=== PATIENT | female | born 1935 | race Two or more races ===

== ENCOUNTER 2025-04-23 03:10 | Inpatient (IN) | payer MEDICARE ==
[~2025-04-23] VITALS: Ht 152.4 cm; Wt 65.4 kg
[2025-04-23] MEDS ORDERED: SPIR25TA6 PO (03:34)
[2025-04-23] MEDS ORDERED: ERGO500040 PO (03:34)
[2025-04-23] MEDS ORDERED: POTA10CA43 PO (03:34)
[2025-04-23] MEDS ORDERED: ERYT3.5O24 LEFTEYE (03:34)
[2025-04-23] MEDS ORDERED: URSO250T3 PO (03:34)
[2025-04-23] MEDS ORDERED: ALBU1.25 NEB (03:34)
[2025-04-23] MEDS ORDERED: GABA300T25 PO (03:34)
[2025-04-23] MEDS ORDERED: PIME30CR6 TP (03:34)
[2025-04-23] MEDS ORDERED: DIGO125T5 PO (03:34)
[2025-04-23] MEDS ORDERED: PITA1TAB PO (03:34)
[2025-04-23] MEDS ORDERED: PANT20TA2 PO (03:34)
[2025-04-23] MEDS ORDERED: ALBU8.5H8 INH (03:34)
[2025-04-23] MEDS ORDERED: APIX2.5T PO (03:34)
[2025-04-23] MEDS ORDERED: DILT240C99 PO (03:34)
[2025-04-23] MEDS ORDERED: TORS20TA3 PO (03:34)
[2025-04-23] MEDS ORDERED: SERT50TA PO (03:34)
[2025-04-23] MEDS ORDERED: UBID100T7 PO (03:34)
[2025-04-23] MEDS ORDERED: LEVO100T10 PO (03:34)
[2025-04-23] MEDS ORDERED: VANCOMYCIN IV 200 ML ONE (03:41)
[2025-04-23] MEDS ORDERED: MEROPENEM 1GM/NS 100ML IVPB **ER PYXIS ONLY IV ONE (03:41)
[2025-04-23 03:42] LABS: WHITE BLOOD COUNT (AUTO) 13.9 K/uL (3.8-11.8)
[2025-04-23 03:43] LABS: CREATININE 2.1 mg/dL (0.6-1.3); SODIUM SERUM 126 mmol/L (136-145); UREA NITROGEN, BLOOD 46 mg/dL (7-18)
[2025-04-23 03:44] LABS: RED BLOOD CELL COUNT(AUTO) 3.65 MIL/uL (3.63-4.92); RED CELL DISTRIBUTION WIDTH 13.7 % (12.3-17.7)
[2025-04-23 03:46] LABS: PLATELET COUNT (AUTO) 11 K/uL (179-408)
[2025-04-23 03:48] LABS: ASPARTATE AMINOTRANSFERASE 27 U/L (15-37); TOTAL PROTEIN, SERUM 7.3 g/dL (6.4-8.2)
[2025-04-23] MEDS: MEROPENEM 1,000 MG in IV NORMAL SALINE 100 ML IV ONE (03:59)
[2025-04-23] MEDS: IV NORMAL SALINE 1000 ML BAG IV ONE (03:59)
[2025-04-23 04:18] LABS: CREATININE 2.1 mg/dL (0.6-1.3); SODIUM SERUM 125 mmol/L (136-145); UREA NITROGEN, BLOOD 46 mg/dL (7-18)
[2025-04-23 04:29] LABS: ASPARTATE AMINOTRANSFERASE 25 U/L (15-37); TOTAL PROTEIN, SERUM 7.5 g/dL (6.4-8.2)
[2025-04-23 04:36] LABS: *BILIRUBIN,URIN NEGATIVE (NEGATIVE); *BLOOD, URINE 3+ (NEGATIVE); *CLARITY,URINE CLEAR (CLEAR); *COLOR,URINE YELLOW (YELLOW); *KETONES,URINE NEGATIVE (NEGATIVE); *PROTEIN,URINE 2+ (NEGATIVE); *UROBILINOGEN,URINE 4.0 E.U./dl (NORMAL); LEUKOCYTE ESTERASE ,URINE 3+ (NEGATIVE); NITRITE, URINE NEGATIVE (NEGATIVE); UGLUCOSE NEGATIVE (NEGATIVE)
[2025-04-23] MEDS: VANCOMYCIN IV 1,000 MG in IV DEXTROSE 5% 250 ML IV ONE (04:47)
[2025-04-23 04:56] LABS: SQUAMOUS EPITHELIAL CELL,UR FEW /HPF (NONE SEEN)
[2025-04-23 05:01] LABS: LYMPHOCYTES % (MANUAL) 3 % (20-40); MONOCYTES % (MANUAL) 5 % (2-10); NEUTROPHILS % (MANUAL) 92 % (42-75); PLATELET ESTIMATE MARKED DECREASED
[2025-04-23] MEDS ORDERED: DIGOXIN 125 MCG TABLET PO SCH (05:30)
[2025-04-23] MEDS ORDERED: MAGNESIUM HYDROXIDE 30 ML LIQUID UDC PO PRN (05:30)
[2025-04-23] MEDS ORDERED: REMEDY ESSENTIAL ZINC PASTE 113 GM TP PRN (05:30)
[2025-04-23] MEDS ORDERED: ONDANSETRON 4 MG/2 ML VIAL IV PRN (05:30)
[2025-04-23 06:03] LABS: RED BLOOD CELL COUNT(AUTO) 3.26 MIL/uL (3.63-4.92); RED CELL DISTRIBUTION WIDTH 14.1 % (12.3-17.7); WHITE BLOOD COUNT (AUTO) 11.9 K/uL (3.8-11.8)
[2025-04-23 06:16] LABS: CREATININE 1.8 mg/dL (0.6-1.3); SODIUM SERUM 129 mmol/L (136-145); UREA NITROGEN, BLOOD 44 mg/dL (7-18)
[2025-04-23 06:24] LABS: PLATELET COUNT (AUTO) 5 K/uL (179-408)
[2025-04-23] MEDS ORDERED: CEFEPIME HCL 1 G VIAL ONE (07:31)
[2025-04-23] MEDS: CEFEPIME HCL 1 G in IV DEXTROSE 5% 50 ML IV SCH (07:36)
[2025-04-23] MEDS ORDERED: SERTRALINE HCL 50 MG TABLET ONE (09:00)
[2025-04-23] MEDS ORDERED: PITAVASTATIN CALCIUM PO SCH (09:00)
[2025-04-23] MEDS ORDERED: DILTIAZEM HCL CD 120 MG CAP.SR.24H PO ONE (09:00)
[2025-04-23] MEDS ORDERED: URSODIOL 300 MG PO SCH (09:00)
[2025-04-23] MEDS ORDERED: LEVOTHYROXINE SODIUM 100 MCG TABLET ONE (09:00)
[2025-04-23] MEDS: APIXABAN 2.5 MG TABLET PO SCH (09:00)
[2025-04-23] MEDS: DILTIAZEM HCL CD 240 MG CAP.SR.24H PO SCH (09:03)
[2025-04-23] MEDS: LEVOTHYROXINE SODIUM 100 MCG TABLET PO SCH (09:03)
[2025-04-23] MEDS: SERTRALINE HCL 50 MG TABLET PO SCH (09:03)
[2025-04-23 10:00] VITALS: BP 121/87; TEMP 98.5; O2SAT 93
[2025-04-23] MEDS: IV NS 1000 ML 1,000 ML IV PRN (10:56)
[2025-04-23 12:00] VITALS: BP 144/65; TEMP 102.8; O2SAT 95
[2025-04-23] MEDS: ACETAMINOPHEN 325 MG TABLET PO PRN (12:34)
[2025-04-23] MEDS ORDERED: GABA300C PO (13:19)
[2025-04-23] MEDS ORDERED: APIXABAN 2.5 MG TABLET PO SCH ×2 (13:23→17:00)
[2025-04-23] MEDS ORDERED: ACET-2030 PO (13:23)
[2025-04-23] MEDS ORDERED: URSO300C12 PO (13:24)
[2025-04-23] MEDS ORDERED: MIRA25TA PO (13:25)
[2025-04-23 16:11] LABS: HIV-1/2 ANTIBODY NON REACTIVE (NONREACTIVE)
[2025-04-23 16:25] VITALS: O2SAT 95
[2025-04-23 16:47] VITALS: BP 105/46; TEMP 97.6; O2SAT 92
[2025-04-23] MEDS: URSODIOL 300 MG CAPSULE PO SCH (17:38)
[2025-04-23] MEDS: GABAPENTIN 300 MG CAPSULE PO SCH (17:38)
[2025-04-23] MEDS ORDERED: Medication Not On Formulary EA (Gabapentin (Gralise) 1 TAB) PO SCH (18:00)
[2025-04-23 19:23] VITALS: BP 138/66; TEMP 99; O2SAT 90; O2SAT 95
[2025-04-23] MEDS: IPRATROPIUM BROMIDE 0.5 MG/2.5 ML NEBU NEB SCH (21:58)
[2025-04-23] MEDS: LEVALBUTEROL HCL NEB 0.63 MG/3 ML NEBU NEB SCH (21:58)
[2025-04-23 21:59] VITALS: O2SAT 95
[2025-04-24] VITALS (17 sets, daily range): BP systolic 91–130; BP diastolic 44–84; TEMP 97.6–99.9; O2SAT 90–99
[2025-04-24] MEDS ORDERED: CEFEPIME HCL 1 G in IV DEXTROSE 5% 50 ML IV SCH (06:00)
[2025-04-24 06:22] LABS: RED BLOOD CELL COUNT(AUTO) 2.99 MIL/uL (3.63-4.92); RED CELL DISTRIBUTION WIDTH 14.0 % (12.3-17.7); WHITE BLOOD COUNT (AUTO) 7.2 K/uL (3.8-11.8)
[2025-04-24 06:29] LABS: PLATELET COUNT (AUTO) 2 K/uL (179-408)
[2025-04-24 06:40] LABS: ASPARTATE AMINOTRANSFERASE 26 U/L (15-37); CREATININE 1.5 mg/dL (0.6-1.3); SODIUM SERUM 139 mmol/L (136-145); TOTAL PROTEIN, SERUM 6.7 g/dL (6.4-8.2); UREA NITROGEN, BLOOD 39 mg/dL (7-18)
[2025-04-24] MEDS: DILTIAZEM HCL CD 240 MG CAP.SR.24H PO SCH (08:53)
[2025-04-24 08:57] LABS: EOSINOPHILS % (MANUAL) 1 % (0-8); LYMPHOCYTES % (MANUAL) 4 % (20-40); MONOCYTES % (MANUAL) 6 % (2-10); NEUTROPHILS % (MANUAL) 89 % (42-75); PLATELET ESTIMATE MARKED DECREASED
[2025-04-24] MEDS: DOXYCYCLINE HYCLATE IV 100 MG in IV DEXTROSE 5% 100 ML IV SCH (08:59)
[2025-04-24] MEDS: PROTONIX 20 MG PO SCH (12:34)
[2025-04-24 13:16] LABS: *RHEUMATOID FACTOR SCREEN NEGATIVE (NEGATIVE)
[2025-04-24 13:30] LABS: IRON, SERUM 16.0 ug/dL (50-175)
[2025-04-24] MEDS: ENSURE ENLIVE (VAN) 240 ML LIQUID PO SCH (17:30)
[2025-04-24] MEDS: LIVALO 1 MG PO SCH (20:11)
[2025-04-24 22:12] LABS: RED BLOOD CELL COUNT(AUTO) 2.74 MIL/uL (3.63-4.92); RED CELL DISTRIBUTION WIDTH 14.1 % (12.3-17.7); WHITE BLOOD COUNT (AUTO) 6.5 K/uL (3.8-11.8)
[2025-04-24 22:15] LABS: PLATELET COUNT (AUTO) 13 K/uL (179-408)
[2025-04-24] MEDS: MEROPENEM 1 G in IV NORMAL SALINE 100 ML IV SCH (22:16)
[2025-04-24] MEDS: VANCOMYCIN IV 1,000 MG in IV DEXTROSE 5% 250 ML IV SCH (23:09)
[2025-04-25] VITALS (15 sets, daily range): BP systolic 116–145; BP diastolic 57–79; TEMP 97.7–99.3; O2SAT 95–99
[2025-04-25 05:00] LABS: *BILIRUBIN,URIN NEGATIVE (NEGATIVE); *BLOOD, URINE NEGATIVE (NEGATIVE); *CLARITY,URINE CLEAR (CLEAR); *COLOR,URINE YELLOW (YELLOW); *KETONES,URINE NEGATIVE (NEGATIVE); *PROTEIN,URINE NEGATIVE (NEGATIVE); *UROBILINOGEN,URINE 0.2 E.U./dl (NORMAL); LEUKOCYTE ESTERASE ,URINE 1+ (NEGATIVE); NITRITE, URINE NEGATIVE (NEGATIVE); UGLUCOSE NEGATIVE (NEGATIVE)
[2025-04-25] MEDS ORDERED: VANCOMYCIN IV 1,000 MG in IV DEXTROSE 5% 250 ML IV SCH (05:00)
[2025-04-25 05:06] LABS: *CREATININE,URINE 35.9 mg/dL (30-125); *SODIUM RNDM,URINE 34 mmol/L (40-220); *URINE TOTAL PROTEIN RANDOM < 6.0 mg/dL (<150/24HR)
[2025-04-25 05:40] LABS: SQUAMOUS EPITHELIAL CELL,UR FEW /HPF (NONE SEEN)
[2025-04-25 06:52] LABS: RED BLOOD CELL COUNT(AUTO) 2.74 MIL/uL (3.63-4.92); RED CELL DISTRIBUTION WIDTH 13.8 % (12.3-17.7); WHITE BLOOD COUNT (AUTO) 8.8 K/uL (3.8-11.8)
[2025-04-25 07:22] LABS: PLATELET COUNT (AUTO) 9 K/uL (179-408)
[2025-04-25 07:24] LABS: ASPARTATE AMINOTRANSFERASE 21 U/L (15-37); CREATINE KINASE, TOTAL 169 U/L (26-192); CREATININE 1.2 mg/dL (0.6-1.3); SODIUM SERUM 135 mmol/L (136-145); TOTAL PROTEIN, SERUM 6.6 g/dL (6.4-8.2); UREA NITROGEN, BLOOD 35 mg/dL (7-18)
[2025-04-25 08:07] LABS: FIBRINOGEN ACTIVITY 465.0 mg/dL (210-360)
[2025-04-25] MEDS ORDERED: diphenhydrAMINE 50 MG/1 ML VIAL IV PRN (08:45)
[2025-04-25] MEDS ORDERED: ACETAMINOPHEN 325 MG TABLET PO PRN (08:45)
[2025-04-25] MEDS: FUROSEMIDE 20 MG/2 ML VIAL IV ONE (09:00)
[2025-04-25] MEDS: DIGOXIN 125 MCG TABLET PO SCH (09:01)
[2025-04-25 10:07] LABS: *IMMUNOGLOBULIN G, SERUM 914 mg/dL (586-1602); IMMUNOGLOBULIN A, SERUM 319 mg/dL (64-422); IMMUNOGLOBULIN M, SERUM 344 mg/dL (26-217)
[2025-04-25] MEDS: FERROUS SULFATE 325 MG TABEC PO SCH (10:41)
[2025-04-25] MEDS ORDERED: SOD FERRIC GLUC COMPLX/SUCROSE 125 MG in IV NORMAL SALINE 100 ML IV SCH (14:00)
[2025-04-25 16:07] LABS: BAND % (MANUAL) 8 % (0-10); EOSINOPHILS % (MANUAL) 1 % (0-8); LYMPHOCYTES % (MANUAL) 5 % (20-40); MONOCYTES % (MANUAL) 10 % (2-10); NEUTROPHILS % (MANUAL) 76 % (42-75)
[2025-04-25 16:08] LABS: PLATELET ESTIMATE MARKED DECREASED
[2025-04-25 18:53] LABS: *OCCULT BLOOD STOOL NEGATIVE (NEGATIVE)
[2025-04-26] VITALS (24 sets, daily range): BP systolic 103–130; BP diastolic 46–74; TEMP 97.6–98.8; O2SAT 94–99
[2025-04-26] MEDS: METOPROLOL TARTRATE 5 MG/5 ML VIAL IVP ONE (02:04)
[2025-04-26 02:06] LABS: HEPATITIS B CORE AB, TOTAL Negative (Negative); HEPATITIS B SURFACE AB, QUAL Non Reactive (.); HEPATITIS B SURFACE AG Negative (Negative); HEPATITIS C VIRUS ANTIBODY Non Reactive (Non Reactive)
[2025-04-26 06:46] LABS: RED BLOOD CELL COUNT(AUTO) 2.89 MIL/uL (3.63-4.92); RED CELL DISTRIBUTION WIDTH 13.6 % (12.3-17.7); WHITE BLOOD COUNT (AUTO) 11.7 K/uL (3.8-11.8)
[2025-04-26 06:58] LABS: PLATELET COUNT (AUTO) 6 K/uL (179-408)
[2025-04-26 08:07] LABS: PTH, INTACT 38 pg/mL (15-65)
[2025-04-26] MEDS: METOPROLOL TARTRATE 25 MG TABLET PO SCH (09:10)
[2025-04-26] MEDS: FUROSEMIDE 20 MG/2 ML VIAL IV ONE (09:10)
[2025-04-26] MEDS: ACETAMINOPHEN 325 MG TABLET PO ONE (12:41)
[2025-04-26] MEDS: diphenhydrAMINE 50 MG/1 ML VIAL IV ONE (12:41)
[2025-04-26] MEDS: CEFTRIAXONE 2 G in IV DEXTROSE 5% 100 ML IV SCH (20:48)
[2025-04-27] VITALS (13 sets, daily range): BP systolic 101–118; BP diastolic 47–62; TEMP 98–98.9; O2SAT 94–100
[2025-04-27 07:24] LABS: RED BLOOD CELL COUNT(AUTO) 2.97 MIL/uL (3.63-4.92); RED CELL DISTRIBUTION WIDTH 13.7 % (12.3-17.7); WHITE BLOOD COUNT (AUTO) 11.6 K/uL (3.8-11.8)
[2025-04-27 07:37] LABS: PLATELET COUNT (AUTO) 33 K/uL (179-408)
[2025-04-27 07:45] LABS: FIBRINOGEN ACTIVITY 450.0 mg/dL (210-360)
[2025-04-27] MEDS: ERGOCALCIFEROL 50,000 UNIT CAPSULE PO SCH (08:16)
[2025-04-27] MEDS: FUROSEMIDE 20 MG TABLET PO SCH (08:16)
[2025-04-27] MEDS: DIGOXIN 500 MCG/2 ML AMP IV ONE (08:16)
[2025-04-27 08:50] LABS: EOSINOPHILS % (MANUAL) 3 % (0-8); LYMPHOCYTES % (MANUAL) 6 % (20-40); MONOCYTES % (MANUAL) 8 % (2-10); NEUTROPHILS % (MANUAL) 83 % (42-75); PLATELET ESTIMATE MARKED DECREASED
[2025-04-27 11:07] LABS: FREE KAPPA LT CHAINS SERUM 67.9 mg/L (3.3-19.4); FREE LAMBDA LT CHAIN SERUM 24.1 mg/L (5.7-26.3); KAPPA/LAMBDA RATIO SERUM 2.82 (0.26-1.65)
[2025-04-28] VITALS (10 sets, daily range): BP systolic 100–120; BP diastolic 53–73; TEMP 97.6–98.4; O2SAT 95–99
[2025-04-28 06:52] LABS: PLATELET COUNT (AUTO) 69 K/uL (179-408); RED BLOOD CELL COUNT(AUTO) 2.91 MIL/uL (3.63-4.92); RED CELL DISTRIBUTION WIDTH 13.9 % (12.3-17.7); WHITE BLOOD COUNT (AUTO) 14.1 K/uL (3.8-11.8)
[2025-04-28] MEDS ORDERED: ACET325T53 PO (17:52)
[2025-04-28] MEDS ORDERED: METO25TA6 PO (17:52)
[2025-04-28] MEDS ORDERED: LACT-246 PO (17:52)
[2025-04-28] MEDS ORDERED: LEVA0.6320 IH (17:52)
[2025-04-28] MEDS ORDERED: FERR-56 PO (17:52)
[2025-04-28] MEDS ORDERED: FURO-152 PO (17:52)
[2025-04-28] MEDS ORDERED: IPRA0.2S48 NEB (17:52)
[2025-04-28] MEDS ORDERED: CEFT1VIA15 IV (17:52)
[2025-04-28] MEDS ORDERED: PETR113P TP (17:54)
[2025-04-29 12:07] LABS: *ANTI-SCLERODERMA-70 AB <0.2 AI (0.0-0.9); *RNP ANTIBODIES <0.2 AI (0.0-0.9); *SJOGREN'S ANTI-SS-A <0.2 AI (0.0-0.9); *SJOGREN'S ANTI-SS-B <0.2 AI (0.0-0.9); *SMITH ANTIBODIES <0.2 AI (0.0-0.9); ANTI-DNA(DS) AB, QN <1 IU/mL (0-9); ANTI-NUCLEAR AB DIRECT Negative (Negative)
[2025-05-01 06:06] LABS: A/G RATIO 0.9 (0.7-1.7); BETA GLOBULIN 1.0 g/dL (0.7-1.3); GLOBULIN, TOTAL 3.1 g/dL (2.2-3.9); M-SPIKE 0.4 g/dL (Not Observed); PROTEIN, TOTAL 5.9 g/dL (6.0-8.5)
[2025-05-01 17:07] LABS: A/G RATIO 1.0 (0.7-1.7); BETA GLOBULIN 0.8 g/dL (0.7-1.3); GLOBULIN, TOTAL 2.8 g/dL (2.2-3.9); M-SPIKE 0.3 g/dL (Not Observed); PROTEIN, TOTAL 5.7 g/dL (6.0-8.5)
== END 2025-04-28 17:14 | DRG 871 ==
LOC: ER 03:16 → TELE3 09:18 → MEDSURG3 04-28 10:15
PROVIDERS: ADMIT Nurse Practitioner Acute Care; ATTEND Nurse Practitioner Acute Care
PROC: 30233R1 Transfusion of Nonautologous Platelets into Peripheral Vein, Percutaneous Approach (ICD-10-PCS; principal; 2025-04-24)
PROC: 05HD33Z Insertion of Infusion Device into Right Cephalic Vein, Percutaneous Approach (ICD-10-PCS; 2025-04-25)
PROC: 30233K1 Transfusion of Nonautologous Frozen Plasma into Peripheral Vein, Percutaneous Approach (ICD-10-PCS; 2025-04-26)
DX: A41.51 Sepsis due to Escherichia coli [E. coli] (principal); D65 Disseminated intravascular coagulation [defibrination syndrome]; G92.8 Other toxic encephalopathy; J15.9 Unspecified bacterial pneumonia; J96.00 Acute respiratory failure, unspecified whether with hypoxia or hypercapnia; N39.0 Urinary tract infection, site not specified; N17.9 Acute kidney failure, unspecified; I48.20 Chronic atrial fibrillation, unspecified; E87.1 Hypo-osmolality and hyponatremia; I50.32 Chronic diastolic (congestive) heart failure; D61.818 Other pancytopenia; R65.20 Severe sepsis without septic shock; E03.9 Hypothyroidism, unspecified; E78.5 Hyperlipidemia, unspecified; E86.0 Dehydration; E87.5 Hyperkalemia; J43.9 Emphysema, unspecified; Z79.890 Hormone replacement therapy; T50.2X5A Adverse effect of carbonic-anhydrase inhibitors, benzothiadiazides and other diuretics, initial encounter; R04.0 Epistaxis; Z79.01 Long term (current) use of anticoagulants; N18.9 Chronic kidney disease, unspecified; Z79.899 Other long term (current) drug therapy; D63.8 Anemia in other chronic diseases classified elsewhere; Z95.0 Presence of cardiac pacemaker; G30.9 Alzheimer's disease, unspecified; F02.80 Dementia in other diseases classified elsewhere, unspecified severity, without behavioral disturbance, psychotic disturbance, mood disturbance, and anxiety; Z66 Do not resuscitate
CPT/HCPCS: 36415; 70030-TC; 70450; 71045; 71250; 76705; 76775; 82784; 83010; 83605; 83615; 83735; 83970; 84100; 84155; 84165; 84300; 84443; 84484; 85025; 85730; 86038; 86334; 86430; 86704; 86706; 86803; 86850; 86880; 86900; 86901; 87040; 87077; 87086; 87340; 87806; 88185; 93005; 93307; 94640; 94760; A4606; A4663; C1758; G0378; J0692; J0696; J1160; J1200; J1938; J2185; J2916; J3373; J3490; J3590; J7040; J7050; J7614; P9035; P9059

== ENCOUNTER 2025-04-27 13:42 | Inpatient (IN) | payer MEDICARE ==
[~2025-04-27] VITALS: Ht 152.4 cm; Wt 63.5 kg
[~2025-04-27 13:42] MED LIST: ACET-2030 PO; ALBU1.25 NEB; ALBU8.5H8 INH; APIX2.5T PO; DIGO125T5 PO; DILT240C99 PO; ERGO500040 PO; ERYT3.5O24 LEFTEYE; GABA300C PO; LEVO100T10 PO; MIRA25TA PO; PANT20TA2 PO; PIME30CR6 TP; PITA1TAB PO; POTA10CA43 PO; SERT50TA PO; SPIR25TA6 PO; TORS20TA3 PO; UBID100T7 PO; URSO300C12 PO
[2025-04-27 15:27] VITALS: BP 109/1; TEMP 98.3
[2025-04-27 16:01] VITALS: BP 109/1; TEMP 98.3
[2025-04-28] MEDS ORDERED: LEVA0.6320 IH (17:52)
[2025-04-28] MEDS ORDERED: LACT-246 PO (17:52)
[2025-04-28] MEDS ORDERED: ACET325T53 PO (17:52)
[2025-04-28] MEDS ORDERED: METO25TA6 PO (17:52)
[2025-04-28] MEDS ORDERED: FERR-56 PO (17:52)
[2025-04-28] MEDS ORDERED: IPRA0.2S48 NEB (17:52)
[2025-04-28] MEDS ORDERED: CEFT1VIA15 IV (17:52)
[2025-04-28] MEDS ORDERED: FURO-152 PO (17:52)
[2025-04-28] MEDS ORDERED: PETR113P TP (17:54)
[2025-04-28 18:23] VITALS: BP 110/52; TEMP 98.9; O2SAT 96
[2025-04-28 20:13] VITALS: BP 111/50; TEMP 99.3; O2SAT 95
[2025-04-28] MEDS ORDERED: ACETAMINOPHEN 325 MG TABLET-SA PATIENTS-PAIN ONLY PO PRN (22:00)
[2025-04-28] MEDS ORDERED: DIGOXIN 125 MCG TABLET PO SCH (22:00)
[2025-04-28] MEDS ORDERED: HOME MED MISCELLANEOUS XX SCH ×4 (22:00)
[2025-04-28] MEDS ORDERED: ERGOCALCIFEROL 50,000 UNIT CAPSULE PO SCH (22:00)
[2025-04-28] MEDS: ALPRAZOLAM 0.25 MG TABLET PO ONE (22:26)
[2025-04-28] MEDS ORDERED: ACETAMINOPHEN 325 MG TABLET PO PRN (22:30)
[2025-04-29] VITALS (10 sets, daily range): BP systolic 93–115; BP diastolic 53–63; TEMP 97.6–98.9; O2SAT 95–99
[2025-04-29] MEDS: IPRATROPIUM BROMIDE 0.5 MG/2.5 ML NEBU NEB SCH (01:31)
[2025-04-29] MEDS: LEVOTHYROXINE SODIUM 100 MCG TABLET PO SCH (06:21)
[2025-04-29] MEDS: LEVALBUTEROL HCL NEB 0.63 MG/3 ML NEBU IH SCH (07:55)
[2025-04-29] MEDS: DILTIAZEM HCL CD 240 MG CAP.SR.24H PO SCH (09:00)
[2025-04-29] MEDS: METOPROLOL TARTRATE 25 MG TABLET PO SCH (09:00)
[2025-04-29] MEDS: FUROSEMIDE 20 MG TABLET PO SCH (09:00)
[2025-04-29] MEDS: SERTRALINE HCL 50 MG TABLET PO SCH (09:33)
[2025-04-29] MEDS: FERROUS SULFATE 325 MG TABEC PO SCH (09:34)
[2025-04-29] MEDS: ENSURE WITH FIBER 237 ML LIQUID (CHOCOLATE) PO SCH (09:35)
[2025-04-29] MEDS: URSODIOL 300 MG CAPSULE PO SCH (09:36)
[2025-04-29] MEDS: PANTOPRAZOLE 20 MG PO SCH (11:53)
[2025-04-29] MEDS: [UNRECOGNIZED DRUG - OTHER] PO SCH (11:53)
[2025-04-29] MEDS: DIGOXIN 125 MCG TABLET PO SCH (12:00)
[2025-04-29 12:42] LABS: PLATELET COUNT (AUTO) 116 K/uL (179-408); RED BLOOD CELL COUNT(AUTO) 2.98 MIL/uL (3.63-4.92); RED CELL DISTRIBUTION WIDTH 14.2 % (12.3-17.7); WHITE BLOOD COUNT (AUTO) 13.6 K/uL (3.8-11.8)
[2025-04-29] MEDS: CEFTRIAXONE 2 G in IV DEXTROSE 5% 100 ML IV SCH (13:05)
[2025-04-29] MEDS: ALBUTEROL SULFATE 1.25 MG/3 ML NEBU NEB SCH (14:00)
[2025-04-29] MEDS: APIXABAN 2.5 MG TABLET PO SCH (15:15)
[2025-04-29] MEDS ORDERED: REMEDY ESSENTIAL ZINC PASTE 113 GM TP PRN (17:00)
[2025-04-29] MEDS: GABAPENTIN 300 MG CAPSULE PO SCH (17:34)
[2025-04-29] MEDS: [UNRECOGNIZED DRUG - OTHER] PO SCH (20:40)
[2025-04-29] MEDS: LIVALO 1 MG PO SCH (20:40)
[2025-04-30] VITALS (11 sets, daily range): BP systolic 100–118; BP diastolic 46–75; TEMP 97–99.1; O2SAT 95–100
[2025-04-30 06:03] LABS: PLATELET COUNT (AUTO) 125 K/uL (179-408); RED BLOOD CELL COUNT(AUTO) 3.02 MIL/uL (3.63-4.92); RED CELL DISTRIBUTION WIDTH 14.3 % (12.3-17.7); WHITE BLOOD COUNT (AUTO) 13.9 K/uL (3.8-11.8)
[2025-05-01] VITALS (12 sets, daily range): BP systolic 100–128; BP diastolic 46–66; TEMP 97.6–98.9; O2SAT 95–100
[2025-05-01 08:16] LABS: PLATELET COUNT (AUTO) 120 K/uL (179-408); RED BLOOD CELL COUNT(AUTO) 2.89 MIL/uL (3.63-4.92); RED CELL DISTRIBUTION WIDTH 14.0 % (12.3-17.7); WHITE BLOOD COUNT (AUTO) 13.0 K/uL (3.8-11.8)
[2025-05-01 08:41] LABS: CREATININE 1.1 mg/dL (0.6-1.3); SODIUM SERUM 141 mmol/L (136-145); UREA NITROGEN, BLOOD 16 mg/dL (7-18)
[2025-05-01] MEDS: POTASSIUM CHLORIDE 20 MEQ POWDER PACKET PO ONE (10:30)
[2025-05-01] MEDS: POTASSIUM CHLORIDE 20 MEQ TAB.PRT.SR PO ONE (11:42)
[2025-05-01] MEDS: ENSURE WITH FIBER 237 ML LIQUID (CHOCOLATE) PO SCH (14:30)
[2025-05-02] VITALS (11 sets, daily range): BP systolic 101–115; BP diastolic 49–61; TEMP 97.6–98.7; O2SAT 95–99
[2025-05-02 07:29] LABS: PLATELET COUNT (AUTO) 116 K/uL (179-408); RED BLOOD CELL COUNT(AUTO) 2.82 MIL/uL (3.63-4.92); RED CELL DISTRIBUTION WIDTH 14.0 % (12.3-17.7); WHITE BLOOD COUNT (AUTO) 10.3 K/uL (3.8-11.8)
[2025-05-02 07:45] LABS: CREATININE 1.1 mg/dL (0.6-1.3); SODIUM SERUM 141 mmol/L (136-145); UREA NITROGEN, BLOOD 16 mg/dL (7-18)
[2025-05-02] MEDS: MAGNESIUM OXIDE 400 MG TABLET PO ONE (12:06)
[2025-05-03] VITALS (10 sets, daily range): BP systolic 108–113; BP diastolic 34–62; TEMP 97.5–98.3; O2SAT 94–99
[2025-05-03] MEDS: AMMONIUM LACTATE 12% LOTION 225 GM BOTTLE TP SCH (17:02)
[2025-05-03] MEDS: MIRTAZAPINE 15 MG TABLET PO SCH (20:52)
[2025-05-04] VITALS (11 sets, daily range): BP systolic 96–139; BP diastolic 45–62; TEMP 97.8–98.8; O2SAT 92–99
[2025-05-04 07:47] LABS: PLATELET COUNT (AUTO) 129 K/uL (179-408); RED BLOOD CELL COUNT(AUTO) 2.86 MIL/uL (3.63-4.92); RED CELL DISTRIBUTION WIDTH 14.5 % (12.3-17.7); WHITE BLOOD COUNT (AUTO) 10.6 K/uL (3.8-11.8)
[2025-05-04] MEDS: ERGOCALCIFEROL 50,000 UNIT CAPSULE PO SCH (09:55)
[2025-05-05] VITALS (11 sets, daily range): BP systolic 100–112; BP diastolic 51–62; TEMP 97.1–97.6; O2SAT 95–99
[2025-05-05 05:08] LABS: *IMMUNOGLOBULIN G, SERUM 774 mg/dL (586-1602); IMMUNOGLOBULIN A, SERUM 333 mg/dL (64-422); IMMUNOGLOBULIN M, SERUM 339 mg/dL (26-217)
[2025-05-05 07:32] LABS: PLATELET COUNT (AUTO) 129 K/uL (179-408); RED BLOOD CELL COUNT(AUTO) 2.96 MIL/uL (3.63-4.92); RED CELL DISTRIBUTION WIDTH 14.7 % (12.3-17.7); WHITE BLOOD COUNT (AUTO) 9.6 K/uL (3.8-11.8)
[2025-05-06] VITALS (12 sets, daily range): BP systolic 105–150; BP diastolic 50–80; TEMP 97.1–98.5; O2SAT 97–99
[2025-05-06] MEDS: FUROSEMIDE 20 MG TABLET PO SCH (08:51)
[2025-05-07] VITALS (8 sets, daily range): BP systolic 110–125; BP diastolic 58–65; TEMP 98.3–98.9; O2SAT 94–99
[2025-05-07 06:12] LABS: PLATELET COUNT (AUTO) 107 K/uL (179-408); RED BLOOD CELL COUNT(AUTO) 2.80 MIL/uL (3.63-4.92); RED CELL DISTRIBUTION WIDTH 14.8 % (12.3-17.7); WHITE BLOOD COUNT (AUTO) 9.1 K/uL (3.8-11.8)
[2025-05-07 06:25] LABS: ASPARTATE AMINOTRANSFERASE 15 U/L (15-37); CREATININE 1.1 mg/dL (0.6-1.3); SODIUM SERUM 139 mmol/L (136-145); TOTAL PROTEIN, SERUM 6.0 g/dL (6.4-8.2); UREA NITROGEN, BLOOD 13 mg/dL (7-18)
[2025-05-07] MEDS: MAGNESIUM OXIDE 400 MG TABLET PO ONE (12:47)
[2025-05-07] MEDS: POTASSIUM CHLORIDE 20 MEQ TAB.PRT.SR PO ONE (12:48)
[2025-05-08] VITALS (10 sets, daily range): BP systolic 109–124; BP diastolic 48–67; TEMP 98.3–98.8; O2SAT 93–100
[2025-05-08 06:06] LABS: METHYLMALONIC ACID 222.0 nmol/L (0-378)
[2025-05-08] MEDS: POTASSIUM CHLORIDE 10 MEQ TAB.PRT.SR PO SCH (09:04)
[2025-05-09] VITALS (9 sets, daily range): BP systolic 110–116; BP diastolic 49–68; TEMP 97.8–98.7; O2SAT 96–99
[2025-05-09 07:25] LABS: PLATELET COUNT (AUTO) 105 K/uL (179-408); RED BLOOD CELL COUNT(AUTO) 2.99 MIL/uL (3.63-4.92); RED CELL DISTRIBUTION WIDTH 15.1 % (12.3-17.7); WHITE BLOOD COUNT (AUTO) 6.7 K/uL (3.8-11.8)
[2025-05-09 07:34] LABS: CREATININE 1.0 mg/dL (0.6-1.3); SODIUM SERUM 144 mmol/L (136-145); UREA NITROGEN, BLOOD 13 mg/dL (7-18)
[2025-05-10] VITALS (8 sets, daily range): BP systolic 104–128; BP diastolic 48–80; TEMP 98.1–98.4; O2SAT 95–100
[2025-05-10 07:55] LABS: PLATELET COUNT (AUTO) 101 K/uL (179-408); RED BLOOD CELL COUNT(AUTO) 2.85 MIL/uL (3.63-4.92); RED CELL DISTRIBUTION WIDTH 15.3 % (12.3-17.7); WHITE BLOOD COUNT (AUTO) 6.5 K/uL (3.8-11.8)
[2025-05-10 08:06] LABS: CREATININE 1.1 mg/dL (0.6-1.3); SODIUM SERUM 143 mmol/L (136-145); UREA NITROGEN, BLOOD 13 mg/dL (7-18)
[2025-05-10] MEDS: ENSURE ENLIVE (VAN) 240 ML LIQUID PO SCH (12:32)
[2025-05-11] VITALS (8 sets, daily range): BP systolic 101–126; BP diastolic 55–62; TEMP 97.9–98.4; O2SAT 94–100
[2025-05-12] VITALS (7 sets, daily range): BP systolic 118–121; BP diastolic 57–62; TEMP 97.8–98.9; O2SAT 92–100
[2025-05-12 07:44] LABS: PLATELET COUNT (AUTO) 86 K/uL (179-408); RED BLOOD CELL COUNT(AUTO) 2.78 MIL/uL (3.63-4.92); RED CELL DISTRIBUTION WIDTH 15.0 % (12.3-17.7); WHITE BLOOD COUNT (AUTO) 6.7 K/uL (3.8-11.8)
[2025-05-12 08:13] LABS: ASPARTATE AMINOTRANSFERASE 14 U/L (15-37); CREATININE 1.1 mg/dL (0.6-1.3); SODIUM SERUM 141 mmol/L (136-145); TOTAL PROTEIN, SERUM 6.1 g/dL (6.4-8.2); UREA NITROGEN, BLOOD 15 mg/dL (7-18)
[2025-05-12 18:15] LABS: LYMPHOCYTES % (MANUAL) 14 % (20-40); MONOCYTES % (MANUAL) 7 % (2-10); NEUTROPHILS % (MANUAL) 79 % (42-75)
[2025-05-12 18:16] LABS: PLATELET ESTIMATE DECREASED
== END 2025-05-12 15:23 | disposition home health service (06) | DRG 871 ==
PROVIDERS: ADMIT Physical Medicine & Rehabilitation Pain Medicine; ATTEND Physical Medicine & Rehabilitation Pain Medicine
DX: A41.51 Sepsis due to Escherichia coli [E. coli] (principal); G92.8 Other toxic encephalopathy; G93.41 Metabolic encephalopathy; N17.0 Acute kidney failure with tubular necrosis; J18.9 Pneumonia, unspecified organism; D61.818 Other pancytopenia; I48.20 Chronic atrial fibrillation, unspecified; I50.32 Chronic diastolic (congestive) heart failure; N39.0 Urinary tract infection, site not specified; D68.59 Other primary thrombophilia; E44.0 Moderate protein-calorie malnutrition; J44.0 Chronic obstructive pulmonary disease with (acute) lower respiratory infection; D63.1 Anemia in chronic kidney disease; E03.9 Hypothyroidism, unspecified; E78.5 Hyperlipidemia, unspecified; E86.9 Volume depletion, unspecified; F02.80 Dementia in other diseases classified elsewhere, unspecified severity, without behavioral disturbance, psychotic disturbance, mood disturbance, and anxiety; G30.9 Alzheimer's disease, unspecified; N18.9 Chronic kidney disease, unspecified; D75.89 Other specified diseases of blood and blood-forming organs; E83.42 Hypomagnesemia; E87.6 Hypokalemia; G62.9 Polyneuropathy, unspecified; M19.90 Unspecified osteoarthritis, unspecified site; Z91.81 History of falling; Z66 Do not resuscitate; Z79.01 Long term (current) use of anticoagulants; Z88.8 Allergy status to other drugs, medicaments and biological substances; Z91.048 Other nonmedicinal substance allergy status
CPT/HCPCS: 36415; 70030-TC; 73521; 82784; 83735; 83921; 84100; 84443; 85025; 85610; 85730; 86334; 93005; 94640; 94664; 94760; 97535-GO-CO; A4663; J0696; J3590; J7614